=== PATIENT | male | born 1980 | race Caucasian/White ===

== ENCOUNTER 2018-09-21 09:08 | Emergency (ER) | payer BC, OTHER ==
--- NOTE | 2018-09-21 09:39 | UC ---
Shoulder Pain HPI - HPI Summary HPI Summary: Patient is 38 year old gentleman, who present today to the urgent care with left shoulder pain for past 2 days. Denies any injury or trauma. Noticed it on Saturday night when he rolls in bed and has been very painful since. Pain is anterolateral shoulder, radiates down from shoulder to the elbow. He has tried ibuprofen without much pain relief. pain is worse with any movement. He denies any neck pain, radicular symptoms, numbness and tingling No prior injury to the left shoulder Denies any fever, chills, cough chest pain or shortness of breath . Denies any abdominal pain , nausea or vomiting , diarrhea or constipation. - History of Current Complaint Stated Complaint: LT SHOULDER COMPLAINT Time Seen by Provider: 09/21/18 09:35 Hx Obtained From: Patient - Allergies/Home Medications Allergies/Adverse Reactions: Allergies Allergy/AdvReac Type Severity Reaction Status Date / Time pseudoephedrine Allergy Hives Verified 09/21/18 09:36 [From Blair] all 'cillins Allergy Hives Uncoded 09/13/14 15:47 novacaine Allergy Hives Uncoded 09/21/18 09:36 Home Medications: Home Medications Ibuprofen TAB* [Advil TAB*] 400 mg PO Q6H PRN 09/21/18 [History Confirmed ] PMH/Surg Hx/FS Hx/Imm Hx - Additional Past Medical History Additional PMH: Past Medical History : None Past Surgical History: No Past History of Procedure Family History : Noncontributory Social History : Occasional alcohol, non smoker, no drug use. Works [employer] Previously Healthy: Yes - Surgical History Surgical History: None - Social History Alcohol Use: Occasionally Substance Use Type: None Smoking Status (MU): Never Smoked Tobacco Review of Systems All Other Systems Reviewed And Are Negative: Yes Constitutional: Positive: Negative Skin: Positive: Negative Eyes: Positive: Negative ENT: Positive: Negative Respiratory: Positive: Negative Cardiovascular: Positive: Negative Gastrointestinal: Positive: Negative Genitourinary: Positive: Negative Motor: Positive: Negative Neurovascular: Positive: Negative Musculoskeletal: Positive: Arthralgia - Left shoulder, Decreased ROM - Painful Neurological: Positive: Negative Psychological: Positive: Negative Is Patient Immunocompromised?: No Physical Exam - Summary Physical Exam Summary: Vital Signs Reviewed: Yes A+Ox3, no distress Eyes: Conjunctiva Clear ENT: Hearing grossly normal neck: supple Respiratory: Positive: No respiratory distress, No accessory muscle use Cardiovascular: skin color reflect adequate perfusion Musculoskeletal Exam: STARKEY x 4 without difficulty Neurological: Positive: Alert, ambulatory without difficulty Psychological: Positive: Normal Response To Family Skin: Positive: no rash, no ecchymosis Left Shoulder: Inspection and Palpation: No visible deformities noted. Mild tenderness at the greater tuberosity, no acromioclavicular joint tenderness noted ROM: Cervical spine: Full Range of motion in flexion, extension and lateral rotation. Glenohumeral joint: Significantly limited and painful range of motion in all planes, able to flex to 100 , abduct to 70, and internal rotation to left SI joint Strength: supraspinatus 4 /5(testing difficulty to pain), Infraspinatus 5/5, subscapularis 5/5, External rotation 5/5. Tone: Normal muscle tone of the shoulder. Special tests: Empty can test positive for pain and weakness, Neer sign and Villalpando test positive.(Limited testing due to pain and decreased range of motion ) Normal distal sensation and pulses. Triage Information Reviewed: Yes Vital Signs Reviewed: Yes Diagnostics - Radiology No standard instances Radiology Interpretation Completed By: Radiologist - Left shoulder x-ray:SOFT TISSUE CALCIFICATION SUGGESTIVE OF A CALCIFIC TENDINOPATHY. NO ACUTE OSSEOUS INJURY. IF SYMPTOMS PERSIST, RECOMMEND REPEAT IMAGING. Shoulder Course/Dx - Course Course Of Treatment: During the visit today, we obtained left shoulder x-ray SOFT TISSUE CALCIFICATION SUGGESTIVE OF A CALCIFIC TENDINOPATHY. NO ACUTE OSSEOUS INJURY. IF SYMPTOMS PERSIST, RECOMMEND REPEAT IMAGING. We discussed the findings and further plan including corticosteroid injection but he declined the injection. I will prescribe Medrol Dosepak to the pharmacy He will start physical therapy and follow with orthopedics. He briefly discussed the barbotage procedure where the calcific area can be broken down under ultrasound guidance with a needle. Patient expressed understanding . - Differential Dx/Diagnosis Provider Diagnosis: Left shoulder pain, Calcific tendinitis of left shoulder Discharge - Sign-Out/Discharge Documenting (check all that apply): Patient Departure All imaging exams completed and their final reports reviewed: Yes - Discharge Plan Condition: Stable Disposition: HOME Prescriptions: methylPREDNISolone [Medrol Dosepak 4 MG*] 0 mg PO .SEE BERNADETTE INSTRUCTION #1 bernadette Patient Education Materials: Rotator Cuff Tendinitis (ED) Referrals: Blue Villagran MD [Primary Care Provider] - Jarad Pretty MD [Medical Doctor] - 1 Week Additional Instructions: Please start taking the medication as prescribed to the pharmacy . Ibuprofen as needed for pain control Start physical therapy Activity as tolerated pain-free Follow up with orthopedics in 1 week Patients blood pressure slightly high in Urgent care today , plan follow up with PCP for better control Return to Urgent care / ER if symptoms get worse. - Billing Disposition and Condition Condition: STABLE Disposition: Home
[2018-09-21 09:41] VITALS: BP 131/81
== END 2018-09-21 10:16 | disposition home or self-care (01) ==
LOC: UCCORT 09:08
DX: M75.32 Calcific tendinitis of left shoulder (principal)
CPT/HCPCS: 99212; G0463

== ENCOUNTER 2019-01-25 12:50 | Emergency (ER) | payer BC ==
[2019-01-25 14:36] VITALS: BP 109/74
--- NOTE | 2019-01-25 14:49 | UC ---
Skin Complaint HPI - HPI Summary HPI Summary: Pt presents with c/o painful, itchy rash to right side of neck and upper, anterior chest X 2-3 days. Pt states that the right side of neck and chest felt as though he had a sunburn then he noticed a small blister on right anterior upper chest wall. - History of Current Complaint Chief Complaint: UCRash Time Seen by Provider: 01/25/19 14:42 Stated Complaint: SHOUDER/NECK SKIN CONCERN Hx Obtained From: Patient Onset/Duration: Sudden Onset, Lasting Days, Still Present, Worse Since Skin Exposure Onset/Duration: Days Ago Timing: Constant Onset Severity: Mild Current Severity: Mild Pain Intensity: 4 Location: Generalized - right side of neck and upper anterior chest wall Character: Pruritus, Pain, Redness, Raised Aggravating Factor(s): Touch Alleviating Factor(s): Nothing Associated Signs & Symptoms: Positive: Rash - Allergy/Home Medications Allergies/Adverse Reactions: Allergies Allergy/AdvReac Type Severity Reaction Status Date / Time pseudoephedrine Allergy Hives Verified 01/25/19 14:27 [From Sudafed] all 'cillins Allergy Hives Uncoded 01/25/19 14:27 novacaine Allergy Hives Uncoded 01/25/19 14:27 Home Medications: Home Medications Aloe Gel 1 dose TOPICAL ONCE PRN 01/25/19 [History] Atorvastatin* [Lipitor 80 MG*] 80 mg PO QPM 01/25/19 [History Confirmed 01/25/19 ] PMH/Surg Hx/FS Hx/Imm Hx Previously Healthy: Yes Endocrine History: Dyslipidemia - Surgical History Surgical History: Yes Surgery Procedure, Year, and Place: intestinal scope for spasms as child - Family History Known Family History: Positive: Cardiac Disease - Social History Occupation: Employed Full-time Lives: With Family Alcohol Use: None Substance Use Type: None Smoking Status (MU): Never Smoked Tobacco Have You Smoked in the Last Year: No Review of Systems All Other Systems Reviewed And Are Negative: Yes Constitutional: Positive: Negative Skin: Positive: Rash Eyes: Positive: Negative ENT: Positive: Negative Respiratory: Positive: Negative Cardiovascular: Positive: Negative Gastrointestinal: Positive: Negative Genitourinary: Positive: Negative Motor: Positive: Negative Neurovascular: Positive: Negative Musculoskeletal: Positive: Negative Neurological: Positive: Negative Psychological: Positive: Negative Is Patient Immunocompromised?: No Physical Exam Triage Information Reviewed: Yes Appearance: Well-Appearing Vital Signs: Initial Vital Signs Temp 98.5 F 01/25/19 14:30 Pulse 94 01/25/19 14:30 Resp 20 01/25/19 14:30 BP 109/74 01/25/19 14:30 Pulse Ox 98 01/25/19 14:30 Vital Signs Reviewed: Yes Eye Exam: Normal ENT: Positive: Hearing grossly normal Dental Exam: Normal Neck exam: Normal Respiratory Exam: Normal Respiratory: Positive: No respiratory distress Musculoskeletal Exam: Normal Neurological Exam: Normal Psychological Exam: Normal Skin: Positive: Rashes - right side upper anterior chest wall, erythematous, blister like rash with clear fluid in blisters. Course/Dx - Differential Diagnoses - Skin Complaint Differential Diagnoses: Cellulitis, Contact Dermatitis, Poison Jacinta, Scabies, Varicella Zoster - Diagnoses Provider Diagnosis: Shingles Discharge ED - Sign-Out/Discharge Documenting (check all that apply): Patient Departure All imaging exams completed and their final reports reviewed: No Studies - Discharge Plan Condition: Stable Disposition: HOME Prescriptions: ValACYclovir (*) [Valtrex 1 GM(*)] 1 gm PO Q12H #14 tab Patient Education Materials: Shingles (ED) Referrals: Blue Villagran MD [Primary Care Provider] - If Needed - Billing Disposition and Condition Condition: STABLE Disposition: Home - Attestation Statements Provider Attestation: Per institutional requirements, I have reviewed the chart, however, I was not consulted specifically or made aware of this patient by the midlevel provider. I did not personally evaluate, interact with , or disposition this patient.
== END 2019-01-25 14:54 | disposition home or self-care (01) ==
LOC: UCCORT 12:50
DX: B02.9 Zoster without complications (principal); E78.5 Hyperlipidemia, unspecified; Z79.899 Other long term (current) drug therapy; Z88.8 Allergy status to other drugs, medicaments and biological substances; Z88.4 Allergy status to anesthetic agent
CPT/HCPCS: 99212; G0463